=== PATIENT | male | born 1980 | race Caucasian/White ===

== ENCOUNTER 2017-04-20 12:59 | Emergency (ER) | payer MEDICAID, OTHER ==
[2017-04-20 14:36] VITALS: BP 129/77
--- NOTE | 2017-04-20 14:41 | ED ---
Laceration/Wound HPI - HPI Summary HPI Summary: Patient presents to the ED with CC of left thumb laceration on a preparing box tender which occurred approx 30 minuntes prior to arrival. No blood loss. Superficial and measures .5cm. Denies any other complaints at this time. - History of Current Complaint Stated Complaint: FINGER LAC LEFT HAND Time Seen by Provider: 04/20/17 13:09 Hx Obtained From: Patient Mechanism of Injury: Sharp/Blunt Trauma Onset/Duration: Sudden Onset Onset Severity: Mild Current Severity: Mild Pain Intensity: 0 Pain Scale Used: 0-10 Numeric Associated Signs & Symptoms: Negative Related Hx: Dominant Hand (Right) PMH/Surg Hx/FS Hx/Imm Hx Previously Healthy: Yes Infectious Disease History: Denies: Traveled Outside the [place] in Last 30 Days - Social History Occupation: Employed Full-time Lives: With Family Alcohol Use: Rare Substance Use Type: Reports: None Hx Tobacco Use: Yes Smoking Status (MU): Heavy Every Day Tobacco Smoker Review of Systems Constitutional: Negative Eyes: Negative Cardiovascular: Negative Gastrointestinal: Negative Positive: no symptoms reported, see HPI Musculoskeletal: Negative Positive: Other - .5cm laceration Neurological: Negative All Other Systems Reviewed And Are Negative: Yes Physical Exam Triage Information Reviewed: Yes Vital Signs On Initial Exam: Initial Vitals Temp Pulse Resp BP Pulse Ox 97.6 F 90 16 133/72 98 04/20/17 13:05 04/20/17 13:05 04/20/17 13:05 04/20/17 13:05 04/20/17 13:05 Vital Signs Reviewed: Yes Appearance: Positive: Well-Appearing, Well-Nourished Skin: Positive: Warm, Skin Color Reflects Adequate Perfusion Head/Face: Positive: Normal Head/Face Inspection Eyes: Positive: EOMI, RAMESH, Conjunctiva Clear Neck: Positive: Supple, No Lymphadenopathy Respiratory/Lung Sounds: Positive: Clear to Auscultation, Breath Sounds Present Musculoskeletal: Positive: Normal, Strength/ROM Intact Neurological: Positive: Normal, Sensory/Motor Intact, Alert, Oriented to Person Place, Time, Speech Normal Psychiatric: Positive: Normal Diagnostics - Vital Signs Vital Signs Temp Pulse Resp BP Pulse Ox 04/20/17 14:35 97.7 F 88 17 129/77 04/20/17 13:05 97.6 F 90 16 133/72 98 - Laboratory Lab Statement: Any lab studies that have been ordered have been reviewed, and results considered in the medical decision making process. Laceration Repair Course/Dx - Course Course Of Treatment: Applied dermabond to laceration. 3 steri strips applied. Bandaid applied. NV intact. Pulses +2. Work comp paperwork filled out. Ok for discharge. - Differential Dx Differental Diagnoses: Healing Wound, Laceration, Puncture Wound, Tendon Laceration - Clinical Impression Provider Diagnoses: Laceration of thumb Discharge - Discharge Plan Condition: Stable Disposition: HOME Patient Education Materials: Laceration (ED) Referrals: Geoff GUTIERREZ,Selvin Ortez [Primary Care Provider] - Additional Instructions: Follow up only as needed Keep area clean and dry Steri strips will fall off in a few days, if not you may take them off. Images - Images Hands: 1 - .5cm superifical laceration
== END 2017-04-20 14:36 | disposition home or self-care (01) ==
LOC: ED 12:59
DX: S61.012A Laceration without foreign body of left thumb without damage to nail, initial encounter (principal); W26.9XXA Contact with unspecified sharp object(s), initial encounter; Y93.9 Activity, unspecified; Y92.9 Unspecified place or not applicable; Y99.9 Unspecified external cause status; F17.210 Nicotine dependence, cigarettes, uncomplicated
CPT/HCPCS: 12001; 99281